=== PATIENT | female | born 1940 | race Caucasian/White ===

== ENCOUNTER 2017-09-09 09:48 | Emergency (ER) | payer OTHER, MEDICARE ==
[~2017-09-09] VITALS: Ht 160 cm; Wt 71.2 kg
[~2017-09-09 09:48] MED LIST: AMLODIPINE BESY10 MG PO; DICLOFENAC SODI75 MG PO; HYGROTON 25MG T25 MG PO; MELOXICAM7.5 MG PO
--- NOTE | 2017-09-09 11:32 | ED UPPER/LOWER EXTREMITY COMPL ---
History of Present Illness General Chief Complaint: Lower Extremity Injury Stated Complaint: R ANKLE PAIN SWELLING BRUISING S/P MECHANICAL FALL Source: patient Exam Limitations: no limitations Vital Signs & Intake/Output Vital Signs & Intake/Output Vital Signs Date Time Temp Pulse Resp B/P B/P Pulse O2 O2 Flow FiO2 Mean Ox Delivery Rate 09/09 1310 76 126/88 09/09 0952 97.3 76 20 152/73 97 Room Air Allergies Coded Allergies: oxybutynin (Severe, TONGUE SWELLING, ANAPHYLAXIS 06/16/17) codeine (HALLUCINATIONS 09/09/17) Reconcile Medications Amlodipine Besylate 10 MG TABLET 1 TAB PO DAILY HTN (Reported) Chlorthalidone (Hygroton 25MG Tablet) 25 MG TABLET 1 TAB PO DAILY HTN ( Reported) Diclofenac Sodium 75 MG TABLET.DR 1 TAB PO BID PAIN CONTROL (Reported) Meloxicam 7.5 MG TABLET 1 TAB PO DAILY PAIN CONTROL (Reported) Triage Note: FELL DOWN 3 CONCRETE STEPS ON SATURDAY LANDING ON BOTH KNEES. C/O RIGHT ANKLE PAIN. DENIES HEADSTRIKE, DENIES LOC Triage Nurses Notes Reviewed? yes Onset: Abrupt Duration: day(s):, constant Timing: recent history Severity: moderate, severe Pain/Injury Location: Right: Leg, Ankle. Bilateral: Knee. No Modifying Factors: none HPI: 77-year-old female comes into emergency room complaints of bilateral knee pain and right ankle pain. Patient reports that she slipped yesterday and fell and came down on her knees and twisted her right ankle. She denies hitting her head. Denies any injury or trauma across on her body. He comes in for further evaluation. (Dakotah Roland) Past History Travel History Traveled to [place] past 21 day No Medical History Any Pertinent Medical History? 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 No (Dakotah Roland) Review of Systems Review of Systems Constitutional: Reports: no symptoms. EENTM: Reports: no symptoms. Respiratory: Reports: no symptoms. Cardiovascular: Reports: no symptoms. Gastrointestinal/Abdominal: Reports: no symptoms. Genitourinary: Reports: no symptoms. Musculoskeletal: Reports: see HPI. Skin: Reports: no symptoms. Neurological/Psychological: Reports: no symptoms. Hematologic/Endocrine: Reports: no symptoms. Immunological: Reports: no symptoms. All Other Systems: Reviewed and Negative (Dakotah Roland) Physical Exam Physical Exam General Appearance: well developed/nourished, mild distress Head: atraumatic Eyes: Bilateral: PERRL, EOMI. Ears, Nose, Throat: normal pharynx, normal ENT inspection, hearing grossly normal Neck: normal inspection, supple Cardiovascular/Respiratory: regular rate/rhythm Back: normal inspection Knee Left: soft tissue tenderness, limited range of motion Knee Right: soft tissue tenderness, limited range of motion Foot Right: soft tissue swelling of right ankle joint, limited range of motion, dorsalis pedis pulse intact, tenderness with palpation, Neurologic/Tendon: normal sensation, normal motor functions, normal tendon functions, responds to pain, no evidence tendon injury, no pulse deficit Skin: intact, normal color, warm/dry (Dakotah Roland) Progress Differential Diagnosis: fracture, sprain, tendon injury Plan of Care: Orders Procedure Date/time Status Durable Medical Equipment 09/09 1242 Active Diagnostic Imaging: Viewed by Me: Radiology Read. Discussed w/RAD: Radiology Read. Radiology Impression: PATIENT: JESSI CONWAY PRESENT AGE: 77 PATIENT ACCOUNT NO: [id number] : 41 LOCATION: [facility] ORDERING PHYSICIAN: Dakotah FALLON SERVICE DATE: 09/09/17111 EXAM TYPE: RAD - XRY-ANKLE 3 OR MORE VIEWS R; XRY-KNEE COMPLETE LEFT; XRY-KNEE COMPLETE RIGHT; [id number], RIGHT EXAMINATION: XR TIBIA AND FIBULA, RIGHT XR KNEE, RIGHT XR KNEE, LEFT XR ANKLE, RIGHT CLINICAL INFORMATION: Pain after fall COMPARISON: None TECHNIQUE: Right knee, 4 views Left knee, 4 views Right leg, AP and lateral views Right ankle, 3 views FINDINGS: Right knee: Bone density is diffusely decreased in this patient with history of osteoporosis. Alignment is normal. Joint spaces are normal. No acute fracture, subluxation or joint effusion. Atherosclerotic calcification of the femoral and popliteal arteries. Left knee: Bone density is diffusely decreased. Alignment is normal. The joint spaces are maintained. No fracture, subluxation or joint effusion. Small osteophytes at the patellofemoral compartment. Minimal osteophyte formation at the medial tibiofemoral compartment. Atherosclerotic calcifications of the visualized femoral and popliteal artery. Right leg: Bone density is diffusely decreased. The tibia and fibula are intact. Mild edema in subcutaneous tissues of the prepatellar/infrapatellar region. There are few scattered calcifications in subcutaneous tissues of the anterior leg. Also, mild edema/swelling within soft tissues of the lower leg and ankle. Right ankle: The talar dome is well- positioned within the ankle mortise. Small osteophytes of the mildly degenerated ankle. Old, healed intra-articular fracture of the posterior malleolus of the tibia. There appears to be an old, healed, nondisplaced fracture of the distal fibular metadiaphysis, as well. Calcaneal enthesophytes are noted. IMPRESSION: 1. No acute osseous injury. 2. Mild soft tissue swelling of the right prepatellar/infrapatellar region and right leg. No evidence of patellar fracture. 3. 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 4. No acute findings within the right ankle. DICTATED BY: Alistair Tariq MD DATE/TIME DICTATED:09/09/171202 SHEET ROCK FINISHER:DIANNA DATE/TIME TRANSCRIBED:09/09/171202 CONFIDENTIAL, DO NOT COPY WITHOUT APPROPRIATE AUTHORIZATION. <Electronically signed in Other Vendor System> SIGNED BY: Alistair Tariq MD 09/09/17 8830 (Dakotah Roland) Departure Departure Disposition: HOME OR SELF CARE Condition: Stable Clinical Impression Primary Impression: Right ankle sprain Secondary Impressions: Knee contusion Referrals: Rosey KRUEGER,Yenifer Hyatt MD,[place] (PCP/Family) Additional Instructions: Ice. Rest. Motrin for pain. Elevation. Follow-up with orthopedic doctor provided if not better in 3-5 days. If symptoms do not improve you'll require further evaluation with possible repeat x-rays as well as evaluation by family services specialist. Sprains can last anywhere from days to weeks. No high impact running or jumping if you have an ankle sprain or any type of lower extremity sprain. Return to normal activity only after symptoms have resolved. Please go over all results of today's visit with your primary care doctor. Contact your primary care doctor to let them know you were here in the emergency room. There may be nonspecific findings which may not be related to your visit today here in the emergency room but may require further evaluation and chronic monitoring by your primary care doctor. If you had a laceration today the chance of foreign body always remains. You should follow-up with your primary care doctor for recheck in 3-5 days for a wound check. If you had an x-ray done there is a chance that a fracture could have been missed on initial read and you should follow-up with your primary care doctor for repeat x-rays if symptoms persist. If your blood pressure was elevated here in the emergency room please have rechecked by [facility] primary care doctor within the next 48. If you were prescribed a narcotic here in the emergency room or any type of controlled substances you're not allowed to drive while taking this medication or operate any type of heavy machinery. Narcotics can make you feel lightheaded dizziness nausea and can cause constipation. You may need to grain picker a stool softener. Thank you for choosing [facility] emergency room. Please return to the emergency room immediately if you have any other concerns worsening of symptoms. Departure Forms: Customer Survey General Discharge Information Comments 09/09/2017 3:28:45 PM Patient denied any trauma to her head. No injury anywhere else. No evidence of acute trauma. Follow-up with orthopedic doctor as needed. Return if any other concerns worsening symptoms. (Dakotah Roland) PA/METAL TRIMMER Co-Sign Statement Statement: ED Attending supervision documentation- [] I saw and evaluated the patient. I have also reviewed all the pertinent lab results and diagnostic results. I agree with the findings and the plan of care as documented in the PA's/METAL TRIMMER's documentation. [X] I have reviewed the ED Record and agree with the PA's/METAL TRIMMER's documentation. [] Additions or exceptions (if any) to the PAs/METAL TRIMMER's note and plan are summarized below: [] (Kerwin Russell DO) Procedures Splinting Location: right foot/ankle Manual Alignment Performed: No Splint: pneumatic boot Splint Applied By: splint applied by me Pre-Proc Neuro Vasc Exam: normal Post-Proc Neuro Vasc Exam: normal (Dakotah Roland)
--- NOTE | 2017-09-09 12:15 | RADIOLOGY REPORT ---
EXAMINATION: XR TIBIA AND FIBULA, RIGHT XR KNEE, RIGHT XR KNEE, LEFT XR ANKLE, RIGHT CLINICAL INFORMATION: Pain after fall COMPARISON: None TECHNIQUE: Right knee, 4 views Left knee, 4 views Right leg, AP and lateral views Right ankle, 3 views FINDINGS: Right knee: Bone density is diffusely decreased in this patient with history of osteoporosis. Alignment is normal. Joint spaces are normal. No acute fracture, subluxation or joint effusion. Atherosclerotic calcification of the femoral and popliteal arteries. Left knee: Bone density is diffusely decreased. Alignment is normal. The joint spaces are maintained. No fracture, subluxation or joint effusion. Small osteophytes at the patellofemoral compartment. Minimal osteophyte formation at the medial tibiofemoral compartment. Atherosclerotic calcifications of the visualized femoral and popliteal artery. Right leg: Bone density is diffusely decreased. The tibia and fibula are intact. Mild edema in subcutaneous tissues of the prepatellar/infrapatellar region. There are few scattered calcifications in subcutaneous tissues of the anterior leg. Also, mild edema/swelling within soft tissues of the lower leg and ankle. Right ankle: The talar dome is well-positioned within the ankle mortise. Small osteophytes of the mildly degenerated ankle. Old, healed intra-articular fracture of the posterior malleolus of the tibia. There appears to be an old, healed, nondisplaced fracture of the distal fibular metadiaphysis, as well. Calcaneal enthesophytes are noted. IMPRESSION: 1. No acute osseous injury. 2. Mild soft tissue swelling of the right prepatellar/infrapatellar region and right leg. No evidence of patellar fracture. 3. 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 4. No acute findings within the right ankle.
[2017-09-09 13:10] VITALS: BP 126/88
== END 2017-09-09 13:11 ==
LOC: ERH 09:48
DX: S93.401A Sprain of unspecified ligament of right ankle, initial encounter (principal); S80.01XA Contusion of right knee, initial encounter; S80.02XA Contusion of left knee, initial encounter; W01.0XXA Fall on same level from slipping, tripping and stumbling without subsequent striking against object, initial encounter
CPT/HCPCS: 73562-LT; 73562-RT; 73590-RT; 73610-RT